=== PATIENT | female | born 1995 | race Caucasian/White ===

== ENCOUNTER 2020-11-19 20:18 | Emergency (ER) | payer OTHER ==
[~2020-11-19] VITALS: Ht 170.2 cm; Wt 66.1 kg
--- NOTE | 2020-11-19 20:53 | PHYS DOC ---
General Adult EDM: Chief Complaint: NAUSEA/VOMITING/DIARRHEA HPI: HPI: 25-year-old female presents with 1 day history of nausea and vomiting. She has had multiple episodes today. She now feels dizzy and lightheaded. She is concerned about dehydration. She has been unable to keep down any solids or liq uids. Patient has diabetes for which she takes Lantus and NovoLog. Her blood sugar has been a little higher lately above 200 but below 300. When she checked it before coming to the ER it was under 200. She denies fever chills. She has some epigastric abdominal pain which started after the vomiting. She does not drink alcohol daily. No history of abdominal surgeries. Review of Systems: Review of Systems: Constitutional: Denies fever or chills Eyes: Denies change in visual acuity HENT: Denies nasal congestion or sore throat Respiratory: Denies cough or shortness of breath Cardiovascular: Denies chest pain or edema GI: epigastric abdominal pain, nausea, vomiting. Denies bloody stools or diarrhea : Denies dysuria Musculoskeletal: Denies back pain or joint pain Integument: Denies rash Neurologic: Dizziness. Denies headache, focal weakness or sensory changes Endocrine: Denies polyuria or polydipsia Lymphatic: Denies swollen glands Psychiatric: Denies depression or anxiety Current Medications: Current Meds: Current Medications Medications (Trade) Dose Ordered Sig/Lavinia Start Time Stop Time Status Last Admin Dose Admin Ondansetron HCl (Zofran) 4 mg 1X ONCE 11/19/20 21:00 11/19/20 21:01 Sodium Chloride 1,000 ml @ 1,000 mls/hr 1X ONCE 11/19/20 21:00 11/19/20 21:59 Allergies: Allergies: Allergies Coded Allergies Type Severity Reaction Last Updated Verified No Known Drug Allergies 11/19/20 No Physical Exam: PE: Constitutional: Well developed, well nourished, no acute distress, non-toxic appearance. [] HENT: Normocephalic, atraumatic, bilateral external ears normal, oropharynx moist, no oral exudates, nose normal. [] Eyes: PERRLA, EOMI, conjunctiva normal, no discharge. [] Neck: Normal range of motion, no tenderness, supple, no stridor. [] Cardiovascular:Heart rate regular rhythm, no murmur [] Lungs & Thorax: Bilateral breath sounds clear to auscultation [] Abdomen: Bowel sounds normal, soft, mild epigastric tenderness, no masses, no pulsatile masses. [] Skin: Warm, dry, no erythema, no rash. [] Back: No tenderness, no CVA tenderness. [] Extremities: No tenderness, no cyanosis, no clubbing, ROM intact, no edema. [] Neurologic: Alert and oriented X 3, normal motor function, normal sensory function, no focal deficits noted. [] Psychologic: Affect normal, judgement normal, mood normal. [] Current Patient Data: Labs: Laboratory Tests Test 11/19/20 20:49 POC Urine HCG, Qualitative hcg negative (Negative) EKG: EKG: [] Radiology/Procedures: Radiology/Procedures: [] Impressions: EXAM: CT chest with contrast - pulmonary embolus protocol CLINICAL HISTORY: Reason: elevated HR, SOB, dizzy, OMNI 350, 100ml / Spl. Instructions: / History: . COMPARISON: None. TECHNIQUE: CT of the chest following the administration of intravenous contrast during the pulmonary arterial phase. Axial, coronal and sagittal reformatted images were generated including MIP images. ---PQRS compliance statement - One or more of the following individualized dose reduction techniques were utilized for this study: 1. Automated exposure control 2. Adjustment of the mA and/or kV according to patient size 3. Use of iterative reconstruction technique--- FINDINGS: CHEST: Diagnostic quality: Adequate. Pulmonary emboli: No pulmonary emboli to the level of the segmental branches. More peripheral vessels are not well assessed. Right heart strain: None Pulmonary arteries: Normal in caliber. Visualized thyroid gland is normal. No focal airspace consolidation, pneumothorax, or pleural effusion. Central airway is patent. Minimal left basila r subsegmental atelectasis. Heart size is normal. Atrial septal defect closure device is noted. No pericardial effusion. No pathologically enlarged mediastinal or hilar lymph nodes. Visualized Upper abdomen: There is a small hiatal hernia with layering material in the distal esophagus which may be from reflux or delayed motility. Bones: No acute osseous process IMPRESSION: 1. No evidence of thromboembolic disease to the level of the segmental pulmonary arteries. 2. No evidence of acute cardiopulmonary 3. Small hiatal hernia with findings suggestive of gastric reflux or delayed esophageal motility. Electronically signed by: Zia Hughes DO (11/20/2020 1:06 AM) [facility] DICTATED AND SIGNED BY: ZIA HUGHES DO DATE: 11/20/20 0100 CC: MENA HUGHES DO; PCP,UNKNOWN ~MTH0 0 Heart Score: C/O Chest Pain: N/A Risk Factors: Risk Factors: DM, Current or recent (<one month) smoker, HTN, HLP, family history of CAD, obesity. Risk Scores: Score 0 - 3: 2.5% MACE over next 6 weeks - Discharge Home Score 4 - 6: 20.3% MACE over next 6 weeks - Admit for Clinical Observation Score 7 - 10: 72.7% MACE over next 6 weeks - Early Invasive Strategies Course & Med Decision Making: Course & Med Decision Making Pertinent Labs and Imaging studies reviewed. (See chart for details) The patient is tachycardic. We will give her a liter normal saline and 4 mg of Zofran. She has had no further vomiting, but continues to be tachycardic and mildly dizzy. I ordered a second liter normal saline and some Benadryl. The d izziness is not completely gone but it is improved. Second liter is not finished yet and the patient is still tacky at 120. Her labs are significant for hemoconcentration and elevated blood sugar. Her anion gap is normal. I will wait on the second liter of fluid and if this does not improve her tachycardia will do a CT angio of the chest. CT angio of the chest is negative for pulmonary embolus or other acute findings. Her heart rate has improved to around 115. She is feeling better. I have advised that she go home and get some rest and continue to hydrate herself. She is stable for discharge at this time. [] [place] Disclaimer: [employer] Disclaimer: This electronic medical record was generated, in whole or in part, using a voice recognition dictation system. Departure Departure: Impression: Primary Impression: Nausea & vomiting Additional Impression: Hyperglycemia due to diabetes mellitus Disposition: 01 HOME / SELF CARE / HOMELESS Condition: STABLE Referrals: PCP,UNKNOWN (PCP) Patient Instructions: Dehydration, Adult, [id number], Nausea and Vomiting, [id number] Scripts Ondansetron (ONDANSETRON ODT) 4 Mg Tab.rapdis 1 TAB PO PRN Q6-8HRS PRN for VOMITING, #16 TAB Prov: MENA HUGHES DO 11/20/20 MENA HUGHES DO Nov 19, 2020 20:52
[2020-11-19] MEDS ORDERED: IV NORMAL SALINE 1,000ML 1,000 ML IV ONE ×2 (21:00→22:15)
[2020-11-19] MEDS ORDERED: ONDANSETRON PF 4 MG/2 ML VIAL. IVP ONE (21:00)
[2020-11-19 21:11] LABS: BILIRUBIN,URINE SMALL (NEG); CLARITY,URINE CLEAR; COLOR,URINE YELLOW; GLUCOSE,URINE 500 mg/dL (NEG)
[2020-11-19 21:12] LABS: BACTERIA,URINE 0 /HPF (0-FEW); HYALINE CASTS, URINE FEW /HPF; NITRITE,URINE NEG (NEG); RBC,URINE 0 /HPF (0-2); SQUAMOUS EPITHELIAL CELL,UR FEW /LPF; UROBILINOGEN,URINE 0.2 mg/dL (0.2 mg/dL)
[2020-11-19 21:21] LABS: BASO % 0 % (0-3); EOS % 0 % (0-3); HEMATOCRIT 49.7 % (36.0-47.0); HEMOGLOBIN 17.3 g/dL (12.0-15.5); LYMPH # 0.4 x10^3/uL (1.0-4.8); LYMPH % 4 % (24-48); MEAN CORPUSCULAR HEMOGLOBIN 34 pg (25-35); MEAN CORPUSCULAR HGB CONC 35 g/dL (31-37); MEAN CORPUSCULAR VOLUME 98 fL (79-100); MONO # 0.7 x10^3/uL (0.0-1.1); MONO % 7 % (0-9); NEUT # 8.6 x10^3uL (1.8-7.7); NEUT % 88 % (31-73); PLATELET COUNT 194 x10^3/uL (140-400); WHITE BLOOD COUNT 9.7 x10^3/uL (4.0-11.0)
[2020-11-19 21:31] LABS: CALCIUM 8.6 mg/dL (8.5-10.1); CREATININE 0.5 mg/dL (0.6-1.0); GFR 151.6; POTASSIUM 3.6 mmol/L (3.5-5.1)
[2020-11-19 21:37] LABS: ALBUMIN 3.9 g/dL (3.4-5.0); ALBUMIN/GLOBULIN RATIO 1.2 (1.0-1.7); TOTAL BILIRUBIN 0.9 mg/dL (0.2-1.0); TOTAL PROTEIN 7.1 g/dL (6.4-8.2)
[2020-11-19] MEDS ORDERED: diphenhydrAMINE 50 MG/ML VIAL IVP ONE (22:15)
[2020-11-19 23:29] VITALS: BP 108/59
[2020-11-20] MEDS ORDERED: CONTRAST GIVEN. MC PRN (00:45)
[2020-11-20] MEDS ORDERED: IOHEXOL 350 MG/ML 100 ML VIAL. IV ONE (01:00)
--- NOTE | 2020-11-20 01:09 | RAD ---
EXAM: CT chest with contrast - pulmonary embolus protocol CLINICAL HISTORY: Reason: elevated HR, SOB, dizzy, OMNI 350, 100ml / Spl. Instructions: / History: . COMPARISON: None. TECHNIQUE: CT of the chest following the administration of intravenous contrast during the pulmonary arterial phase. Axial, coronal and sagittal reformatted images were generated including MIP images. ---PQRS compliance statement - One or more of the following individualized dose reduction techniques were utilized for this study: 1. Automated exposure control 2. Adjustment of the mA and/or kV according to patient size 3. Use of iterative reconstruction technique--- FINDINGS: CHEST: Diagnostic quality: Adequate. Pulmonary emboli: No pulmonary emboli to the level of the segmental branches. More peripheral vessel s are not well assessed. Right heart strain: None Pulmonary arteries: Normal in caliber. Visualized thyroid gland is normal. No focal airspace consolidation, pneumothorax, or pleural effusio n. Central airway is patent. Minimal left basilar subsegmental atelectasis. Heart size is normal. Atr ial septal defect closure device is noted. No pericardial effusion. No pathologically enlarged medias tinal or hilar lymph nodes. Visualized Upper abdomen: There is a small hiatal hernia with layering material in the distal esopha em which may be from reflux or delayed motility. Bones: No acute osseous process IMPRESSION: 1. No evidence of thromboembolic disease to the level of the segmental pulmonary arteries. 2. No evidence of acute cardiopulmonary 3. Small hiatal hernia with findings suggestive of gastric reflux or delayed esophageal motility. Electronically signed by: Roland Deluna DO (11/20/2020 1:06 AM) [facility]
[2020-11-20] MEDS ORDERED: ONDA4TAB12 PO (01:20)
== END 2020-11-20 01:28 | disposition home or self-care (01) ==
LOC: ER 20:18
DX: E11.65 Type 2 diabetes mellitus with hyperglycemia (principal); R11.2 Nausea with vomiting, unspecified; R42 Dizziness and giddiness; R10.13 Epigastric pain
CPT/HCPCS: 36415; 71275; 80053; 81001; 81025; 82947; 83690; 85025; 96361; 96374; 96375; 99285; J1200; J2405; J7030; Q9967